=== PATIENT | female | born 1950 | race Caucasian/White ===

== ENCOUNTER 2019-07-28 19:33 | Emergency (ER) | payer MEDICARE, SELFPAY ==
[2019-07-28 19:34] VITALS: BP 136/70; PULSE 64; RESP 20; TEMP 36.7; O2SAT 94; BMI 17.6
--- NOTE | 2019-07-28 19:53 | XR_ITS ---
PROCEDURE: XR CHEST 2V CLINICAL HISTORY: cough Cough and congestion COMPARISON: No exams were available for comparison FINDINGS: The heart size is normal. There is hyperinflation with bronchial thickening consistent with small airway disease Patchy density is present in the lingula consistent with pneumonia. There is also some patchy density in the right perihilar region. No effusions are evident. Mild dextroscoliosis of the thoracolumbar spine. IMPRESSION: Pneumonia within the lingula and possible right perihilar region with underlying hyperinflation suggesting small airway disease such as COPD or bronchitis/asthma. Dictated by: Ryan Stacy MD 07/29/2019 06:04 Electronically signed by Ryan Stacy MD in [place] 07/29/2019 06:04
--- NOTE | 2019-07-28 20:17 | HMH.EDUTC ---
[facility] [place] Clinical Impression: Bronchitis Otitis media Qualifiers: Otitis media type: suppurative Chronicity: acute Laterality: left Recurrence: non-recurrent Spontaneous tympanic membrane rupture: without spontaneous rupture Qualified Code(s): H66.002 - Acute suppurative otitis media without spontaneous rupture of ear drum, left ear Disposition: Home, Self-Care Condition on Discharge: Good Instructions: Middle Ear Infection, DI for Acute Bronchitis Additional Instructions: Drink plenty of fluids. Take tylenol or ibuprofen for pain or fever. Take the medications as directed. Follow up with your regular doctor. GO TO THE ER FOR ANY WORSENING SYMPTOMS Prescriptions: predniSONE [Deltasone 10mg tablet] 10 mg PO BID 4 Days #8 tab Transmission Status: Received by [id number] Fluticasone Propionate [Flonase 50mcg nasal spray 16gm] 1 spr NS BID 30 Days #1 bottle Transmission Status: Received by [id number] Cefdinir [Omnicef 300mg Capsule] 300 mg PO BID #20 cap Transmission Status: Received by [id number] Referrals: Provider,Referral, [Primary Care Provider] - Time of Disposition: 20:31 Medical Decision Making - Medical Records Medical records reviewed: No: I reviewed the patient's medical records. - Erick Inquiry Pt receiving controlled substance: No Vital Signs: 07/28/19 19:34 07/28/19 20:38 Temperature 98.1 F 98.1 F Temperature Source Oral Oral Pulse Rate 64 Pulse Rate [Radial] 64 Respiratory Rate 20 20 Blood Pressure 136/70 Blood Pressure [Right Arm] 136/70 Blood Pressure Mean [Right Arm] 92 Blood Pressure Source Automatic Cuff Blood Pressure Source [Right Arm] Automatic Cuff Blood Pressure Position Sitting Blood Pressure Position [Right Arm] Sitting 02 Sat by Pulse Oximetry 94 L Oxygen Delivery Method Room Air Room Air Orders (Tests/Meds): ED MEDICATIONS Discontinued Medications Generic Name Dose Route Start Last Admin Trade Name Freq PRN Reason Stop Dose Admin Methylprednisolone Sodium Succinate 62.5 mg 07/28/19 20:24 07/28/19 20:27 Solu-Medrol 125mg/2ml Vial IM 07/28/19 20:25 62.5 mg ONCE ONE Administration ORDERS Category Date Time Status Chest XR 2 view (NOT portable) [XR chest 2V] Stat Exams 07/28/19 19:53 Taken [facility] [place] - General Stated complaint: dizzy,left ear,cough Time Seen by Provider: 07/28/19 20:17 Mode of Arrival: Ambulatory Source of Information: Patient Limitations: No Limitations Description of Symptoms (Recalled from Triage Doc. by RN): LEFT EAR PAIN HEENT Symptoms (Recalled from RN notes): Yes Resp Symptoms (Recalled from RN notes): No Skin Symptoms (Recalled from RN notes): No MS Symptoms (Recalled from RN notes): No Functional Status (Recalled from RN notes): WNL - History of Present Illness Provider Complaint: She states that she has been having a dry cough and left ear fullness and pain for the past 3 to 4 weeks. She has not had any fever or chills. She does have a history of allergies. She lives in [place], but she came here to visit family about 5 weeks ago and got stuck her because of the COVID-19 quarentine. She denies any known exposure to someone with covid or any covid symptoms. - Related Data Previous Rx's Medication Instructions Recorded Cefdinir [Omnicef 300mg Capsule] 300 mg PO BID #20 cap 07/28/19 Fluticasone Propionate [Flonase 1 spr NS BID 30 Days #1 bottle 07/28/19 50mcg nasal spray 16gm] predniSONE [Deltasone 10mg tablet] 10 mg PO BID 4 Days #8 tab 07/28/19 Allergies Allergy/AdvReac Type Severity Reaction Status Date / Time No Known Allergies Allergy Verified 07/28/19 20:06 - Worker's Comp Is this a Worker's Comp case?: No [facility] History - Hepatitis A Screen Drug use history?: No High risk sexual behaviors?: No History of sexually transmitted infection?: No Currently employed?: No Childcare worker?: No Do you have indoor pl
[2019-07-28 20:38] VITALS: BP 136/70; PULSE 64; RESP 20; TEMP 36.7; O2SAT 94
== END 2019-07-28 20:40 | disposition home or self-care (01) ==
PROVIDERS: Emergency Provider Nurse Practitioner Family
DX: J20.9 Acute bronchitis, unspecified (principal); H66.002 Acute suppurative otitis media without spontaneous rupture of ear drum, left ear
CPT/HCPCS: G0463; 71046; 96372; 99202